=== PATIENT | male | born 1995 | race Caucasian/White ===

== ENCOUNTER 2016-12-21 17:52 | Emergency (ER) | payer OTHER | END 2016-12-21 18:48 | disposition home or self-care (01) | LOC: FER 17:52 | DX: S60.454A Superficial foreign body of right ring finger, initial encounter (principal); F90.9 Attention-deficit hyperactivity disorder, unspecified type; Z79.899 Other long term (current) drug therapy; W45.8XXA Other foreign body or object entering through skin, initial encounter | CPT/HCPCS: 99283 ==